=== PATIENT | male | born 1965 | race Caucasian/White ===

== ENCOUNTER 2018-05-08 16:19 | Emergency (ER) | payer OTHER ==
[2018-05-08 16:27] VITALS: BP 155/90
[2018-05-08] MEDS ORDERED: LIDOCAINE 1% INJ-PF (10 MG/ML) 30 ML SDV INJ ONE (16:39)
[2018-05-08] MEDS ORDERED: DIPH/PERTUSS(ACELL)/TETANUS VAC/PF 0.5 ML SYR (>=10YO) IM ONE (16:39)
--- NOTE | 2018-05-08 16:41 | ER Document Report ---
HPI - HPI Patient complains to provider of: Finger laceration Onset: Just prior to arrival Onset/Duration: Sudden Quality of pain: Achy Pain Level: 3 Context: Patient was using a mandolin slicer and slipped cutting his right second finger. Associated Symptoms: Other - Finger laceration Exacerbated by: Movement Relieved by: Denies Similar symptoms previously: No Recently seen / treated by doctor: No - ROS ROS below otherwise negative: Yes Systems Reviewed and Negative: Yes All other systems reviewed and negative - CONSTITUTIONAL Constitutional: DENIES: Fever - GASTROINTESTINAL Gastrointestinal: DENIES: Nausea - MUSCULOSKELETAL Musculoskeletal: REPORTS: Extremity pain. DENIES: Swelling - DERM Skin Color: Normal Skin Problems: Laceration Past Medical History - General Information source: Patient - Social History Smoking Status: Current Every Day Smoker Smoking Education Provided: Yes Frequency of alcohol use: Occasional Drug Abuse: None Occupation: Foodservice Family History: Reviewed & Not Pertinent - Medical History Medical History: Negative Surgical Hx: Negative - Immunizations Hx Diphtheria, Pertussis, Tetanus Vaccination: No Vertical Provider Document - CONSTITUTIONAL Agree With Documented VS: Yes Exam Limitations: No Limitations General Appearance: WD/WN, No Apparent Distress - INFECTION CONTROL TRAVEL OUTSIDE OF THE [place] IN LAST 30 DAYS: No - HEENT HEENT: Atraumatic, Normocephalic - NECK Neck: Normal Inspection - RESPIRATORY Respiratory: No Respiratory Distress - CARDIOVASCULAR Pulses: Normal: Radial - MUSCULOSKELETAL/EXTREMETIES Musculoskeletal/Extremeties: MAEW, FROM - NEURO Level of Consciousness: Awake, Alert, Appropriate Motor/Sensory: No Motor Deficit - DERM Integumentary: Warm, Dry, Laceration - Laceration to dorsal aspect of hand overlying right second PIP joint Course - Vital Signs Vital signs: Temp Pulse Resp BP Pulse Ox 98.5 F 88 20 155/90 H 96 05/08/18 16:26 05/08/18 16:26 05/08/18 16:26 05/08/18 16:26 05/08/18 16:26 Procedures - Immobilization Right Finger 2nd digit Pre-Proc Neuro Vasc Exam: Normal Immobilizer type: Finger splint (Static) Performed by: PCT Post-Proc Neuro Vasc Exam: Normal Alignment checked and good: Yes - Laceration/Wound Repair Right Finger 2nd digit Wound length (cm): 3 Wound's Depth, Shape: Irregular, Flap Anesthetic type: 1% Lidocaine Wound explored: Clean, No foreign body removed Wound Repaired With: Sutures Suture Size/Type: 5:0, Nylon Number of Sutures: 11 Layer Closure?: No Post-procedure wound care: Sterile dressing applied, Splint applied Post-procedure NV exam normal: Yes Complications: No Hands back picture: 1 - flap laceration Discharge - Discharge Clinical Impression: Finger laceration Qualifiers: Encounter type: initial encounter Finger: index finger Damage to nail status: without damage Foreign body presence: without foreign body Laterality: right Qualified Code(s): S61.210A - Laceration without foreign body of right index finger without damage to nail, initial encounter Condition: Stable Disposition: HOME, SELF-CARE Instructions: Laceration Care (OM), Tetanus Immunization Given ([facility]) Additional Instructions: Return immediately for any new or worsening symptoms Followup with your primary care provider, call tomorrow to make a followup appointment Suture removal in 14 days Forms: Smoking Cessation Education, Return to Work Referrals: FLORENCE JOSEPH DO [ACTIVE STAFF] - Follow up as needed
== END 2018-05-08 18:18 | disposition home or self-care (01) ==
LOC: ER 16:19
DX: S61.210A Laceration without foreign body of right index finger without damage to nail, initial encounter (principal); W26.8XXA Contact with other sharp object(s), not elsewhere classified, initial encounter; F17.200 Nicotine dependence, unspecified, uncomplicated
CPT/HCPCS: 99282; 90471; 90715; 12002; J3490

== ENCOUNTER 2018-05-29 10:52 | Emergency (ER) | payer OTHER ==
[2018-05-29 10:58] VITALS: BP 159/86
--- NOTE | 2018-05-29 11:19 | ER Document Report ---
HPI - HPI Patient complains to provider of: Suture removal Onset: Other Pain Level: 0 Context: 52-year-old male here to get his sutures removed from his right dorsal index finger. They were placed 11 days ago. Associated Symptoms: None Exacerbated by: Denies Relieved by: Denies Similar symptoms previously: No Recently seen / treated by doctor: No - ROS ROS below otherwise negative: Yes Systems Reviewed and Negative: Yes All other systems reviewed and negative Past Medical History - General Information source: Patient - Social History Smoking Status: Current Every Day Smoker Lives with: Family Family History: Reviewed & Not Pertinent Patient has suicidal ideation: No Patient has homicidal ideation: No - Medical History Medical History: Negative Renal/ Medical History: Denies: Hx Peritoneal Dialysis Surgical Hx: Negative - Immunizations Hx Diphtheria, Pertussis, Tetanus Vaccination: No Vertical Provider Document - CONSTITUTIONAL Agree With Documented VS: Yes Exam Limitations: No Limitations - INFECTION CONTROL TRAVEL OUTSIDE OF THE [place] IN LAST 30 DAYS: No - MUSCULOSKELETAL/EXTREMETIES Musculoskeletal/Extremeties: JORDY FROM Notes: Crusted sutured laceration to his right dorsal index finger at the PIP, signs of infection. - NEURO Level of Consciousness: Awake Course - Vital Signs Vital signs: Temp Pulse Resp BP Pulse Ox 98.7 F 77 17 159/86 H 100 05/29/18 10:58 05/29/18 10:58 05/29/18 10:58 05/29/18 10:58 05/29/18 10:58 Discharge - Discharge Clinical Impression: Suture removal dorsal right index finger Condition: Good Disposition: HOME, SELF-CARE Instructions: Suture Removal Additional Instructions: Return to the emergency room any concerns
== END 2018-05-29 11:38 | disposition home or self-care (01) ==
LOC: ER 10:52
DX: S61.210D Laceration without foreign body of right index finger without damage to nail, subsequent encounter (principal); X58.XXXD Exposure to other specified factors, subsequent encounter; F17.200 Nicotine dependence, unspecified, uncomplicated